=== PATIENT | male | born 1990 | race Caucasian/White ===

== ENCOUNTER 2017-10-04 14:22 | Emergency (ER) | payer OTHER ==
[~2017-10-04] VITALS: Ht 167.6 cm; Wt 81.7 kg
[2017-10-04] MEDS ORDERED: PREDNISONE 10 M10 MG PO (16:07)
[2017-10-04] MEDS ORDERED: ULTRAM 50MG TAB50 MG PO (16:07)
[2017-10-04 16:16] VITALS: BP 109/63
== END 2017-10-04 16:17 | disposition home or self-care (01) ==
LOC: EDSEX 14:22 → M.ERS 14:22
DX: M54.5 Low back pain (principal); Z88.8 Allergy status to other drugs, medicaments and biological substances